=== PATIENT | female | born 1960 | race Caucasian/White ===

== ENCOUNTER 2018-09-17 13:27 | Outpatient (CLI) | payer MEDICAID | END 2018-09-17 13:28 | disposition critical access hospital (66) | LOC: EMS 13:27 | PROVIDERS: ATTEND Surgery | DX: R42 Dizziness and giddiness (principal); R19.7 Diarrhea, unspecified; R11.0 Nausea | CPT/HCPCS: A0425; A0427; A0999 ==

== ENCOUNTER 2018-09-17 13:45 | Emergency (ER) | payer MEDICAID, OTHER ==
[2018-09-17] MEDS ORDERED: LORazepam 1 MG TABLET PO STA (14:06)
[2018-09-17 14:21] VITALS: BP 156/96
--- NOTE | 2018-09-17 15:14 | ED Physician Documentation ---
History of Present Illness - Stated complaint Stated Complaint: DIZZY - Chief complaint Chief Complaint: Abd Pain - History obtained from History obtained from: Patient - History of Present Illness Timing: Prior to arrival Severity Comments: denies pain Quality: dizziness, tingling in hands, feeling lightheaded, anxious Radiates to: does not radiate Improved by: xanax that she took just prior to arrival Worsened by: nothing Associated symptoms: no chest pain, no sob, no weakness, no trouble walking. reports mild nausea. - Treatment prior to arrival Treatment prior to arrival: xanax - Additonal information Additional information: Pt reports severe stress over her daughter whose children she cares for and has recently gotten out of shelter and is returning home. She reports just prior to arrival in the ED she had gotten off the phone with her daughter. Review of Systems Ten Systems: 10 systems reviewed and negative Constitutional: denies: Fever, Chills Cardiac: reports: Palpitations. denies: Chest pain / pressure Respiratory: denies: Dyspnea GI: reports: Nausea. 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 - Present Medications Home Medications: Ambulatory Orders Medication Instructions Recorded Confirmed ALPRAZolam [Xanax] 0.25 mg PO PRN 06/15/13 06/15/13 Amoxicillin/Potassium Clav 1 each PO BID #14 tablet 06/15/13 [Augmentin 875-125 Tablet] HYDROcod/ACETAM 5/325 [Vicodin 1 - 2 ea PO Q6H PRN #15 tablet 06/15/13 5/325] Levothyroxine Sodium [Synthroid] 175 mcg PO DAILY 06/15/13 06/15/13 - Allergies Allergies/Adverse Reactions: Allergies Allergy/AdvReac Type Severity Reaction Status Date / Time No Known Drug Allergies Allergy Verified 09/17/18 13:53 - Social History Does the pt smoke?: No Smoking Status: Never smoker Does the pt drink ETOH?: Yes Does the pt have substance abuse?: No - Immunizations Immunizations are current?: No Immunizations: TDAP >10years/unknown - POLST Patient has POLST: No PD ED PE NORMAL - Vitals Vital signs reviewed: Yes - General General: Alert and oriented X 3, No acute distress, Well developed/nourished - HEENT HEENT: Atraumatic - Neck Neck: Supple, no meningeal sign - Cardiac Cardiac: RRR, No murmur, No gallop, No rub - Respiratory Respiratory: No respiratory distress, Clear bilaterally, Other (mild hyperventilation) - Abdomen Abdomen: Soft, Non tender, Non distended - Female Female : Deferred - Rectal Rectal: Deferred - Extremities Extremities: No deformity, No tenderness to palpate, Normal ROM s pain, No edema - Neuro Neuro: Alert and oriented X 3 Eye Opening: Spontaneous Motor: Obeys Commands Verbal: Oriented GCS Score: 15 - Psych Psych: Other (anxious appearing, tremulous extremities ) Results - Vitals Vitals: Oxygen O2 Source Room air - EKG (time done) No standard instances Rate: Rate (enter#) (83) Rhythm: NSR [place]: Normal Intervals: Normal LA, QRS normal. No: Prolonged QT QRS: Normal Ischemia: Normal ST segments Computer interpretation: Agree with computer PD MEDICAL DECISION MAKING - ED course Complexity details: considered differential, d/w patient ED course: ddx- anxiety, vertigo, arrhythmia, hypertensive emergency, 58 y/o F with hx of anxiety with feeling lightheaded, anxious, tremulous and nauseous. Admits to severe stress at home and difficult conversation with her daughter just prior to this. States her BP was high prior to arrival. But it did resolve hder. Her EKG here is sinus rhythm and nonischemic. Her CV and neuro exam is normal. She does not appear to have vertigo symptoms. Her BP is normal. her symptoms improved with xanax at home and another dose of ativan in the ED today. Departure - Departure Disposition: Home, Self Care Clinical Impression: Dizziness Condition: Stable Record reviewed to determine appropriate education?: Yes Instructions: ED Dizziness [facility] Follow-Up: Juanjo Alejandro MD [Primary Care Provider] - As Needed Comments: You were evaluated in the ED today for feeling lightheaded and dizzy. Your blood pressure here today was normal . Your EKG was also normal as was your physical examination. It's likely that your dizziness today was related to anxiety and hyperventilation. Your symptoms here resolved with rest and ativan. Return to the ED if you have any worsening symptoms, passing out or difficulty walking due to dizziness. Discharge Date/Time: 09/17/18 15:21
== END 2018-09-17 15:21 | disposition home or self-care (01) ==
LOC: EDUNIT# → ED 13:45
DX: R42 Dizziness and giddiness (principal); F41.9 Anxiety disorder, unspecified; R06.4 Hyperventilation; F43.9 Reaction to severe stress, unspecified
CPT/HCPCS: 93005; 99281; 99283; J8499